=== PATIENT | female | born 2005 | race Caucasian/White ===

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

== ENCOUNTER 2025-01-26 16:27 | Emergency (ER) | payer OTHER, SELFPAY ==
--- NOTE | 2025-01-26 16:31 | ED.URI ---
HPI - URI/Sore Throat General Chief Complaint: Upper Respiratory Infection Stated Complaint: fever, strep Time Seen by Provider: 01/26/25 16:32 Source: patient Mode of arrival: ambulatory Limitations: no limitations History of Present Illness HPI Narrative: Cierra is a 19-year-old female patient presenting to the clinic today with complaints of sore throat, slight nasal congestion, slight cough, and fever x 2-3 days. Feels that she has lymph node swelling in her neck. She reports fever highest 102F. Taking tylenol/ibuprofen. LMP current. No chest pain or sob. Is requesting strep test. Related Data Allergies Allergy/AdvReac Type Severity Reaction Status Date / Time amoxicillin Allergy Mild rash Verified 12/07/24 15:09 Penicillins Allergy Unknown Verified 01/26/25 16:37 Review of Systems Review of Systems: Pertinent positives per HPI. Patient denies any rash, headache, visual changes, dizziness, shortness of breath, chest pain, palpitations, nausea, vomiting, diarrhea, constipation, abdominal pain, or any urinary issues. PMFSH Family History Family History Mother Patient's mother is in good health Father Patient's father is in good health Social History Social History Social History: Student Smoking status: Never smoker Second hand tobacco smoke exposure: No Alcohol intake: never Substance use: never Substance use type: does not use Do You Feel Safe in your Home?: Yes Lack of Transportation: No Lack of Food: Never True Current Housing: I Have Housing Concerned About Future Housing: No Difficulty Paying Gas/Electric Bills: No Difficulty Paying for Meds: No Currently Unemployed: No Education: Don't Know Difficulty w/ Childcare or Family Care: No Living arrangements: dorm student housing Occupation/Education: student Additional occupation/education comments: Pt goes to school multimedia production assistant. Gender identity (if verbalized by the patient): Female Sexual Orientation (if Verbalized by the Patient): Straight or Heterosexual Comments At the time of my signature, I reviewed and agree with the nursing past medical, surgical, social, and family history. There is no relevant family history pertinent to the patient complaint. Exam Narrative: General: Well-developed, well nourished, in no apparent distress Head: Normocephalic, atraumatic Eyes: Pupils equally round and reactive to light bilaterally, EOM intact, sclera and conjunctive clear, no discharge, lids normal Ears: TMs intact and clear, ear canals clear, no drainage, grossly hearing normal. Nose: Nares patent, clean and discharge, no inflammation, no sinus tenderness. Mouth: Oropharynx red with bilateral tonsillar enlargement without lesions or masses, good dentition, MMM. Neck: Supple, trachea midline, no enlargement of anterior or posterior cervical nodes, no thyroid masses or goiter palpable. Cardio: Regular rate and rhythm, s1 and s2 normal, no murmur appreciated. Resp: Clear to auscultation bilaterally anteriorly and posteriorly, no rhonchi, rales, wheezing or rubs Course Course Emergency Course: Portions of this record may have been created with voice recognition software. Level of Care: Express Care Visit Vital Signs Vital signs: Vital Signs Temperature 36.1 C L 01/26/25 16:42 Pulse Rate 108 H 01/26/25 16:42 Respiratory Rate 16 01/26/25 16:42 Blood Pressure 123/72 01/26/25 16:42 Pulse Oximetry 100 01/26/25 16:42 Temperature 36.1 C L 01/26/25 16:42 Pulse Rate 108 H 01/26/25 16:42 Respiratory Rate 16 01/26/25 16:42 Blood Pressure 123/72 01/26/25 16:42 Pulse Oximetry 100 01/26/25 16:42 Vital signs reviewed MDM - URI/Sore Throat MDM Narrative Medical decision making narrative: At the time of visit patient is resting comfortably on the exam table. Patient appears to be nontoxic. Complaints of sore throat, slight nasal congestion, slight cough, and fever x 2-3 days. Feels as though her lymph nodes are swelling in her neck. She reports fever highest 102F. Taking tylenol/ibuprofen. LMP current. No chest pain or sob. No known sick contacts. Strep test ordered. Labs: Strep test was obtained and positive in the clinic today. Plan: Patient has strep pharyngitis. Prescription for Z-Greg was given to the patient. Supportive measures were discussed with the patient and they voiced understanding discharge instructions and agrees to treatment plan. Return precautions reviewed Differential Diagnosis Differential diagnosis: Likely upper respiratory infection, otitis media, sinusitis, viral infection, bronchitis, influenza, pharyngitis and other (COVID) Lab Data Labs: Lab Results 01/26/25 Range/Units 16:45 POC Grp A Strep Screen Positive (Negative) Discharge Plan Discharge Clinical Impression: Strep pharyngitis Patient Disposition: Home Condition: Stable Instructions: Antibiotic Form, Strep Throat (ED) Additional Instructions: Strep test was positive in the clinic today. Change your toothbrush in 24 hours after initiation of the antibiotics Take prescription medications only as prescribed-azithromycin Increase fluids and stay well hydrated Tylenol/motrin for pain/fever Cepacol spray, cough drops, throat lozenges, warm tea with honey/lemon, gargle salt water to soothe throat Go to the ED if you develop a worsening in your condition- high fever not controlled by Tylenol or Motrin, dehydration, weakness, lethargy, shortness of breath, or chest pain. Follow up with your PCP in 3-5 days if symptoms persist. Patient Language: Italian Prescriptions: New azithromycin 250 mg tablet See Rx Instructions .ROUTE .COMPLEX Qty: 6 0RF Rx Instructions: For 250 mg dose pack: take 500 mg today (day 1), then 250 mg for 4 days (days 2-5) No Action azithromycin 250 mg tablet See Rx Instructions PO .COMPLEX Qty: 6 0RF Rx Instructions: For 250 mg dose pack: take 500 mg today (day 1), then 250 mg for 4 days (days 2-5) PO benzonatate 100 mg capsule 200 mg PO TID PRN (Reason: cough) Qty: 60 0RF Follow-up/Referrals: Eric Jurado MD [Primary Care Provider] - Stand Alone Forms: Work/School Release IP Time of Disposition: 16:46 Quality NIHSS Nursing Documentation ED NIHSS nursing documentation: reviewed/agree
[2025-01-26 16:42] VITALS: BP 123/72; PULSE 108; RESP 16; TEMP 36.1; O2SAT 100
[2025-01-26 16:47] LABS: EDSTREPNEGPOS1 Positive (Negative)
== END 2025-01-26 16:58 | disposition home or self-care (01) ==
PROVIDERS: Emergency Provider Nurse Practitioner Family; PCP Family Medicine
DX: J02.0 Streptococcal pharyngitis (principal)
CPT/HCPCS: 87880; 99213; G0463